=== PATIENT | female | born 1985 | race Caucasian/White ===

== ENCOUNTER 2022-11-29 00:30 | Inpatient (IN) ==
[2022-11-29 01:46] LABS: Urine Appearance Clear; Urine Bilirubin Negative (Negative); Urine Blood Negative (Negative); Urine Color Straw; Urine Glucose Negative (Negative); Urine Ketones Negative (Negative); Urine Nitrite Negative (Negative); Urine Protein Negative (Negative); Urine Specific Gravity 1.002 (1.002-1.030); Urine Urobilinogen Negative (Negative)
[2022-11-29 01:51] LABS: ABS Eosinophils 0.2 10^3/ul (0-0.6); ABS Monocytes 0.9 10^3/ul (0-0.8); ABS Neutrophils 5.3 10^3/ul (1.5-7.7); Eosinophil % 2.1 %; Hematocrit 43 % (35-47); Hemoglobin 14.4 g/dL (12.0-16.0); Lymphocyte % 23.5 %; Mean Corpuscular HGB Conc 33 g/dL (31-36); Mean Corpuscular Hemoglobin 30 pg (27-31); Mean Corpuscular Volume 90 fL (80-97); Mean Platelet Volume 8.8 fL (7.4-10.4); Platelet Count 293 10^3/uL (150-450); Red Blood Count 4.83 10^6 /uL (3.70-4.87); Red Cell Distribution Width 14 % (10-15); White Blood Count 8.5 10^3/uL (3.5-10.8)
[2022-11-29 01:57] LABS: Urine Benzodiazepine Screen None Detected (None Detect); Urine Cannabinoids Screen Presumptive Positive (None Detect); Urine Opiates Screen None Detected (None Detect)
[2022-11-29 02:33] LABS: ALT 25 U/L (7-52); AST 38 U/L (13-39); Acetaminophen < 15 mcg/mL; Albumin 4.2 g/dL (3.2-5.2); Albumin/Globulin Ratio 1.9 (1-3); Alcohol, S < 13 mg/dL (<13); Alkaline Phosphatase 39 U/L (35-149); Anion Gap 7 mmol/L (2-11); Blood Urea Nitrogen 10 mg/dL (6-24); CO2 Carbon Dioxide 22 mmol/L (22-32); Calcium 9.3 mg/dL (8.6-10.3); Chloride 105 mmol/L (101-111); Creatinine, Serum 0.94 mg/dL (0.51-0.95); Globulin 2.2 g/dL (2-4); Glucose 98 mg/dL (70-100); Potassium 4.2 mmol/L (3.5-5.0); Salicylate < 2.50 mg/dL (<30); Sodium 134 mmol/L (135-145); Total Protein 6.4 g/dL (6.4-8.9); eGFR CKD-EPI 79.7 (>60)
[2022-11-29 02:39] LABS: HCG Pregnancy < 0.60 mIU/mL
[2022-11-29 02:48] LABS: TSH Ultra Thyroid Stim Horm 2.75 mcIU/mL (0.34-5.60)
[2022-11-29] MEDS ORDERED: Lorazepam PYXIS KEY PRN (04:18)
[2022-11-29] MEDS ORDERED: Haloperidol 5 mg/ml SDV IV/IM 5 MG/ML AMP IV SLOW PU ONE (04:18)
[2022-11-29] MEDS ORDERED: LORazepam 2 mg VIAL 1 ml IV PUSH ONE (04:18)
[2022-11-29] MEDS ORDERED: Nicotine PATCH 21 MG/24 HR PATCH TRANSDERM ONE (11:20)
[2022-11-29] MEDS ORDERED: Al Hydrox/Mg Hydrox/Simet LIQ 30 ML UDC PO PRN (13:03)
[2022-11-30] MEDS: Vitamin THERAPEUTIC TAB PO SCH (07:47)
[2022-11-30] MEDS: Nicotine PATCH 14 MG/24 HR PATCH TRANSDERM SCH (07:47)
[2022-11-30 08:11] LABS: HDL Cholesterol 47.9 mg/dL
[2022-11-30] MEDS: Nicotine GUM 4MG FRUIT FLAVOR PO PRN ×2 (15:38→18:12)
[2022-12-01] MEDS: Nicotine GUM 4MG FRUIT FLAVOR PO PRN ×5 (01:29→20:26)
[2022-12-01] MEDS ORDERED: Haloperidol 5 mg/ml SDV IV/IM 5 MG/ML AMP ONE (01:43)
[2022-12-01] MEDS ORDERED: LORazepam 2 mg VIAL 1 ml ONE (01:44)
[2022-12-01] MEDS: Vitamin THERAPEUTIC TAB PO SCH (09:43)
[2022-12-01] MEDS: Nicotine PATCH 14 MG/24 HR PATCH TRANSDERM SCH (09:43)
[2022-12-02] MEDS: Nicotine GUM 4MG FRUIT FLAVOR PO PRN ×6 (06:33→19:07)
[2022-12-02] MEDS: Vitamin THERAPEUTIC TAB PO SCH (08:32)
[2022-12-02] MEDS: Nicotine PATCH 14 MG/24 HR PATCH TRANSDERM SCH (08:32)
[2022-12-03] MEDS: Nicotine PATCH 14 MG/24 HR PATCH TRANSDERM SCH (07:53)
[2022-12-03] MEDS: Vitamin THERAPEUTIC TAB PO SCH (07:53)
[2022-12-03] MEDS: Nicotine GUM 4MG FRUIT FLAVOR PO PRN ×6 (07:53→20:33)
[2022-12-04] MEDS: Vitamin THERAPEUTIC TAB PO SCH (07:16)
[2022-12-04] MEDS: Nicotine PATCH 14 MG/24 HR PATCH TRANSDERM SCH (07:16)
[2022-12-04] MEDS: Nicotine GUM 4MG FRUIT FLAVOR PO PRN ×4 (07:17→20:54)
[2022-12-05] MEDS: Nicotine GUM 4MG FRUIT FLAVOR PO PRN ×2 (06:16→10:12)
[2022-12-05 07:47] VITALS: BP 149/83
[2022-12-05] MEDS: Vitamin THERAPEUTIC TAB PO SCH (08:13)
[2022-12-05] MEDS: Nicotine PATCH 14 MG/24 HR PATCH TRANSDERM SCH (08:17)
== END 2022-12-05 11:24 | disposition home or self-care (01) | DRG 753 ==
LOC: ED 00:30 → EDHOLD 01:54 → BSU 12:45
PROVIDERS: ADMIT Psychiatry & Neurology Psychiatry; ATTEND Psychiatry & Neurology Psychiatry

== ENCOUNTER 2022-12-12 16:28 | Inpatient (IN) ==
[2022-12-12] MEDS ORDERED: Al Hydrox/Mg Hydrox/Simet LIQ 30 ML UDC PO PRN (21:47)
[2022-12-12 22:13] LABS: Urine Appearance Cloudy; Urine Bilirubin Negative (Negative); Urine Blood Negative (Negative); Urine Color Straw; Urine Glucose Negative (Negative); Urine Ketones Trace (Negative); Urine Nitrite Negative (Negative); Urine Protein Negative (Negative); Urine Specific Gravity 1.004 (1.002-1.030); Urine Urobilinogen Negative (Negative)
[2022-12-12 22:28] LABS: Urine Benzodiazepine Screen None Detected (None Detect); Urine Cannabinoids Screen Presumptive Positive (None Detect); Urine Opiates Screen None Detected (None Detect)
[2022-12-13] MEDS: OLANZapine 10 mg TAB*ODT PO PRN ×2 (00:10→17:55)
[2022-12-13] MEDS: Vitamin THERAPEUTIC TAB PO SCH (07:28)
[2022-12-13] MEDS: Nicotine GUM 2MG FRUIT FLAVOR PO PRN ×3 (07:28→17:56)
[2022-12-13] MEDS: Nicotine PATCH 14 MG/24 HR PATCH TRANSDERM SCH (07:28)
[2022-12-13 07:49] LABS: ABS Basophils 0.1 10^3/ul (0-0.2); ABS Eosinophils 0.3 10^3/ul (0-0.6); ABS Lymphocytes 2.7 10^3/ul (1.0-4.8); ABS Monocytes 0.8 10^3/ul (0-0.8); ABS Neutrophils 3.8 10^3/ul (1.5-7.7); Eosinophil % 3.4 %; Hematocrit 44 % (35-47); Hemoglobin 14.5 g/dL (12.0-16.0); Lymphocyte % 35.7 %; Mean Corpuscular HGB Conc 33 g/dL (31-36); Mean Corpuscular Hemoglobin 30 pg (27-31); Mean Corpuscular Volume 91 fL (80-97); Mean Platelet Volume 8.5 fL (7.4-10.4); Nucleated Red Blood Cells % 0.1; Platelet Count 295 10^3/uL (150-450); Red Blood Count 4.78 10^6 /uL (3.70-4.87); Red Cell Distribution Width 14 % (10-15); White Blood Count 7.5 10^3/uL (3.5-10.8)
[2022-12-13 08:20] LABS: ALT 16 U/L (7-52); AST 21 U/L (13-39); Albumin 4.1 g/dL (3.2-5.2); Albumin/Globulin Ratio 2.6 (1-3); Alkaline Phosphatase 38 U/L (35-149); Anion Gap 5 mmol/L (2-11); Blood Urea Nitrogen 10 mg/dL (6-24); CO2 Carbon Dioxide 28 mmol/L (22-32); Calcium 9.4 mg/dL (8.6-10.3); Chloride 104 mmol/L (101-111); Cholesterol 138 mg/dL; Creatinine, Serum 0.97 mg/dL (0.51-0.95); Globulin 1.6 g/dL (2-4); Glucose 86 mg/dL (70-100); HDL Cholesterol 46.3 mg/dL; LDL Cholesterol 77 mg/dL; Potassium 4.3 mmol/L (3.5-5.0); Sodium 137 mmol/L (135-145); Total Protein 5.7 g/dL (6.4-8.9); Triglycerides 75 mg/dL; eGFR CKD-EPI 76.7 (>60)
[2022-12-13 08:27] LABS: HCG Pregnancy < 0.60 mIU/mL
[2022-12-13 08:35] LABS: TSH Ultra Thyroid Stim Horm 2.72 mcIU/mL (0.34-5.60)
[2022-12-14] MEDS: Nicotine GUM 2MG FRUIT FLAVOR PO PRN ×6 (07:22→20:13)
[2022-12-14] MEDS: Nicotine PATCH 14 MG/24 HR PATCH TRANSDERM SCH (07:24)
[2022-12-14] MEDS: Vitamin THERAPEUTIC TAB PO SCH (07:25)
[2022-12-14] MEDS: Dextran 70/Hypromellose Tears Eye Drops 15 ml BTL (for Artificials Tears) BOTH EYES PRN ×2 (18:19→20:13)
[2022-12-14] MEDS: OLANZapine 10 mg TAB*ODT PO PRN (20:13)
[2022-12-15] MEDS: Nicotine GUM 2MG FRUIT FLAVOR PO PRN ×4 (06:32→20:24)
[2022-12-15] MEDS: Dextran 70/Hypromellose Tears Eye Drops 15 ml BTL (for Artificials Tears) BOTH EYES PRN ×2 (06:32→08:30)
[2022-12-15] MEDS: Nicotine PATCH 14 MG/24 HR PATCH TRANSDERM SCH (08:26)
[2022-12-15] MEDS: Vitamin THERAPEUTIC TAB PO SCH (08:28)
[2022-12-15] MEDS: OLANZapine 5 mg TAB *ODT PO SCH (20:23)
[2022-12-16] MEDS: Nicotine PATCH 14 MG/24 HR PATCH TRANSDERM SCH (08:32)
[2022-12-16] MEDS: OLANZapine 5 mg TAB *ODT PO SCH ×2 (08:33→20:39)
[2022-12-16] MEDS: Vitamin THERAPEUTIC TAB PO SCH (08:34)
[2022-12-16] MEDS: Nicotine GUM 2MG FRUIT FLAVOR PO PRN ×4 (08:35→20:39)
[2022-12-16] MEDS: Dextran 70/Hypromellose Tears Eye Drops 15 ml BTL (for Artificials Tears) BOTH EYES PRN ×2 (18:02→20:38)
[2022-12-17] MEDS: OLANZapine 5 mg TAB *ODT PO SCH (08:16)
[2022-12-17] MEDS: Vitamin THERAPEUTIC TAB PO SCH (08:16)
[2022-12-17] MEDS: Nicotine PATCH 14 MG/24 HR PATCH TRANSDERM SCH (08:18)
[2022-12-17] MEDS: Nicotine GUM 2MG FRUIT FLAVOR PO PRN ×5 (08:19→20:08)
[2022-12-17] MEDS: Dextran 70/Hypromellose Tears Eye Drops 15 ml BTL (for Artificials Tears) BOTH EYES PRN ×4 (08:21→20:09)
[2022-12-17] MEDS ORDERED: Paliperidone SUSTENNA 234 MG/1.5 ML IM ONE (13:58)
[2022-12-18] MEDS: Nicotine PATCH 14 MG/24 HR PATCH TRANSDERM SCH (08:12)
[2022-12-18] MEDS: Dextran 70/Hypromellose Tears Eye Drops 15 ml BTL (for Artificials Tears) BOTH EYES PRN ×2 (08:14→20:23)
[2022-12-18] MEDS: Multivitamins/Minerals TAB PO SCH (08:20)
[2022-12-18] MEDS: Nicotine GUM 2MG FRUIT FLAVOR PO PRN ×3 (10:06→14:57)
[2022-12-19] MEDS: Multivitamins/Minerals TAB PO SCH (07:23)
[2022-12-19] MEDS: Dextran 70/Hypromellose Tears Eye Drops 15 ml BTL (for Artificials Tears) BOTH EYES PRN (07:28)
[2022-12-19] MEDS: Nicotine GUM 2MG FRUIT FLAVOR PO PRN ×3 (11:42→17:58)
[2022-12-19] MEDS: Nicotine PATCH 14 MG/24 HR PATCH TRANSDERM SCH (16:29)
[2022-12-20] MEDS: Multivitamins/Minerals TAB PO SCH (08:54)
[2022-12-20] MEDS: Nicotine PATCH 14 MG/24 HR PATCH TRANSDERM SCH (08:54)
[2022-12-20] MEDS: Dextran 70/Hypromellose Tears Eye Drops 15 ml BTL (for Artificials Tears) BOTH EYES PRN ×3 (08:56→17:36)
[2022-12-20] MEDS: Nicotine GUM 2MG FRUIT FLAVOR PO PRN ×3 (08:56→17:35)
[2022-12-21] MEDS: Nicotine PATCH 14 MG/24 HR PATCH TRANSDERM SCH (07:39)
[2022-12-21] MEDS: Multivitamins/Minerals TAB PO SCH (07:39)
[2022-12-21] MEDS: Nicotine GUM 2MG FRUIT FLAVOR PO PRN ×3 (13:08→20:59)
[2022-12-21] MEDS: Dextran 70/Hypromellose Tears Eye Drops 15 ml BTL (for Artificials Tears) BOTH EYES PRN ×2 (18:05→20:58)
[2022-12-22] MEDS: Multivitamins/Minerals TAB PO SCH (07:41)
[2022-12-22] MEDS: Nicotine PATCH 14 MG/24 HR PATCH TRANSDERM SCH (07:44)
[2022-12-22] MEDS ORDERED: Paliperidone SUSTENNA 156 MG/1 ML IM ONE (08:55)
[2022-12-22] MEDS: Nicotine GUM 2MG FRUIT FLAVOR PO PRN ×3 (11:07→18:15)
[2022-12-22] MEDS: Dextran 70/Hypromellose Tears Eye Drops 15 ml BTL (for Artificials Tears) BOTH EYES PRN ×2 (14:11→18:15)
[2022-12-22] MEDS: BENZOYL PEROXIDE 5% TOPICAL SCH ×2 (14:13→21:56)
[2022-12-23] MEDS: Multivitamins/Minerals TAB PO SCH (08:38)
[2022-12-23] MEDS: Nicotine PATCH 14 MG/24 HR PATCH TRANSDERM SCH (08:38)
[2022-12-23] MEDS: Dextran 70/Hypromellose Tears Eye Drops 15 ml BTL (for Artificials Tears) BOTH EYES PRN (10:54)
[2022-12-23] MEDS: BENZOYL PEROXIDE 5% TOPICAL SCH ×2 (10:54→20:32)
[2022-12-23] MEDS: Nicotine GUM 2MG FRUIT FLAVOR PO PRN ×2 (10:56→13:30)
[2022-12-24] MEDS: Multivitamins/Minerals TAB PO SCH (08:33)
[2022-12-24] MEDS: BENZOYL PEROXIDE 5% TOPICAL SCH ×2 (08:35→20:22)
[2022-12-24] MEDS: Nicotine PATCH 14 MG/24 HR PATCH TRANSDERM SCH (09:14)
[2022-12-24] MEDS: Nicotine GUM 2MG FRUIT FLAVOR PO PRN (16:05)
[2022-12-24] MEDS: Dextran 70/Hypromellose Tears Eye Drops 15 ml BTL (for Artificials Tears) BOTH EYES PRN (16:06)
[2022-12-25] MEDS: Multivitamins/Minerals TAB PO SCH (07:29)
[2022-12-25] MEDS: Nicotine PATCH 14 MG/24 HR PATCH TRANSDERM SCH (07:29)
[2022-12-25] MEDS: BENZOYL PEROXIDE 5% TOPICAL SCH (08:41)
[2022-12-25 09:24] VITALS: BP 140/64
== END 2022-12-25 13:00 | disposition home or self-care (01) | DRG 753 ==
LOC: ED 16:28 → EDHOLD 21:31 → BSU 23:23
PROVIDERS: ADMIT Psychiatry & Neurology Psychiatry; ATTEND Psychiatry & Neurology Psychiatry